=== PATIENT | male | born 1940 | race Caucasian/White ===

== ENCOUNTER 2019-03-29 17:32 | Observation (INO) ==
--- NOTE | 2019-03-29 17:55 | Emergency Department Note ---
Disposition Clinical Impression: Laceration Concussion with loss of consciousness Qualifiers: Encounter type: initial encounter Qualified Code(s): S06.0X9A - Concussion with loss of consciousness of unspecified duration, initial encounter Syncope Qualifiers: Syncope type: unspecified Qualified Code(s): R55 - Syncope and collapse Head injury Qualifiers: Encounter type: initial encounter Qualified Code(s): S09.90XA - Unspecified injury of head, initial encounter Disposition: Admitted As Inpatient Condition: Good Referrals: Michelle Bowser MD [Primary Care Provider] - Forms: ED Satisfaction Letter Time of Disposition: 21:36 Head Injury HPI - General Chief complaint: ED Head Injury Stated complaint: Trauma Time Seen by Provider: 03/29/19 17:35 Source: patient, family Mode of arrival: private vehicle Limitations: no limitations Nursing Notes Reviewed: Yes Vital Signs Reviewed: Yes - History of Present Illness HPI Narrative: 78M with significant cardiac history that reports being 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 He presents with a laceration above his right eye, a visibly deformed nose, and while alert & oriented x 3, is slow to respond. Pt was moved from room 26 to trauma 1 and alert team was notified. Pt reported being on aspirin and plavix, but plavix was reportedly discharged recently. Pt was taken to CT scan before a full trauma evaluation was performed given the reported history of blood thinners with head injury. - Related Data Home Medications Medication Instructions Recorded Confirmed Aspirin [Lo-Dose Aspirin EC] 81 mg PO DAILY 11/09/16 03/29/19 Cyanocobalamin (Vitamin B-12) 100 mcg PO DAILY 11/09/16 03/29/19 [Vitamin B-12] Finasteride [Proscar] 5 mg PO DAILY 11/09/16 03/29/19 Lecithin 1,200 mg PO BID 11/09/16 03/29/19 Lisinopril [Zestril] 10 mg PO BID 11/09/16 03/29/19 Metoprolol [Lopressor] 25 mg PO BID 11/09/16 03/29/19 Simvastatin [Zocor] 40 mg PO HS 11/09/16 03/29/19 Isosorbide MONOnitrate (24 HR) 30 mg PO DAILY 07/09/17 03/29/19 [Imdur] Pantoprazole Sodium [Protonix] 40 mg PO BID 03/29/19 03/29/19 Allergies/Adverse reactions: Allergies Allergy/AdvReac Type Severity Reaction Status Date / Time No Known Allergies Allergy Verified 07/09/17 06:56 Limitations: ROS unobtainable due to patients medical condition Past Medical History - Past Medical History Medical history: Reports: CHF, coronary artery disease, GERD, GI bleed, hyperlipidemia, hypertension, syncope, other Surgical history: Reports: angioplasty/stent, coronary bypass (CABG), pacemaker Psychiatric history: Reports: no psych history - Social History Smoking Status: Unknown if ever smoked Smokeless Tobacco Status: No Alcohol use: Reports: none Drug use: Reports: none Physical Exam GENERAL: On backboard with C-collar in place. SKIN: Warm and well perfused. No rashes, bruises, discolorations or abrasions. HEAD: 5cm linear laceration above right eye running from lateral to medial with gaping of the wound and active bleeding. EYES: PERRL. No scleral icterus or conjunctival injection. Extraocular muscles intact without nystagmus or diplopia. No proptosis or enophthalmos. EARS: Normal appearing pinnae. No hemotympanum. NOSE: Deformity of nose with evidence of recent bleeding, no active bleeding. No nasal septal hematoma. MOUTH: No malocclusion or trismus. Moist mucus membranes with blood, presumably from nose, no lacerations noted to inside of mouth. Posterior pharynx without erythema or exudate. NECK: Trachea midline. No discolorations or edema. Neck immobilized in cervical collar. CV: Regular rate and rhythm, Normal s1 and s2. No murmurs, rubs, or gallops. PV: Radial pulses 2+ bilaterally and symmetric. Dorsalis pedis pulses 2+ bilaterally and symmetric. 2+ capillary refill. No extremity edema. CHEST: No abrasions or ecchymosis. Chest symmetric with respirations. No chest wall tenderness. No crepitus. No step offs. Lungs are clear to auscultation bilaterally. No rales, rhonchi, wheezing or stridor. Pacemaker present in upper left quadrant. ABDOMEN: No ecchymosis or abrasions. Soft, nondistended, nontender. Bowel tones normoactive. No masses or organomegaly. BACK: No abrasions, skin openings, or ecchymosis. Midline thoracic back pain at T8-T10, no step offs, no overlying ecchymosis, erythema. PELVIC: Pelvis stable, nontender to lateral compression and palpation of symphysis pubis. RECTAL: Normal tone. Stool without gross blood. MSK: No gross deformities or discolorations or lesions. Tolerates full range of motion of extremities without tenderness except as noted: left wrist, left and right shoulders, left forearm, right lower extremity. NEURO: Alert and oriented to person, place, and time. GCS 15. CN II-XII intact. Sensation grossly intact. Strength 5/5 in bilateral UE and LE. Finger to nose intact bilaterally. - General Limitations: no limitations General appearance: alert, in no apparent distress Course Vital Signs Temperature 97.4 F L 03/29/19 17:42 Pulse Rate 69 03/29/19 17:42 Respiratory Rate 16 03/29/19 17:42 Blood Pressure 168/86 03/29/19 17:42 O2 Sat by Pulse Oximetry 96 03/29/19 17:42 Temperature 97.4 F L 03/29/19 17:42 Pulse Rate 69 03/29/19 20:25 Respiratory Rate 18 03/29/19 20:25 Blood Pressure 162/74 03/29/19 20:25 O2 Sat by Pulse Oximetry 98 03/29/19 20:25 Oxygen Delivery Oxygen Delivery Room Air Head Injury - MDM Narrative Medical decision making narrative: 78-year-old male that may have lost consciousness and struck his head, or struck his head and lost consciousness while he was [facility] a bulldozer [facility] today. Patient is now complaining of bilateral shoulder pain, he has a laceration above his right eye, and evidence of recent epistaxis out of bilateral nares. Due to the uncertainty in the patient's presentation we will obtain a CT of his head and neck, EKG. The CT of the head and neck was obtained before a full trauma examination was completed. CT was unremarkable. X-rays were ordered for all of the complaints he had during trauma exam, and did not show any evidence of acute fractures. There was some question as to whether or not he had foreign bodies in his left arm, however he does not have any lacerations or open wounds over any aspect of his left arm. These foreign bod ies may be chronic in nature. Patient's EKG showed a left bundle branch block, and chart review revealed that patient receives cardiac care at [facility], and last old EKG available was taken in 2010, it is unknown whether this left bundle branch block is new. Additionally patient initially reported that he was on aspirin and Plavix, however family reports the Plavix had been discontinued and so he was only taking aspirin. Given the patient's advanced age and presentation with story that cannot be completely correlated, patient could benefit from overnight observation in the hospital to ensure he does not clinically deteriorate and returns to mental baseline. Patient is awake and alert 3 however states that he appears more sluggish than normal. Patient's laceration was repaired in the department. Patient will be admitted to the hospitalist. Results of the workup including any imaging and/or labwork was shared with the patient at bedside. Patient was given an opportunity to ask questions at bedside and all of their concerns were addressed. Patient verbalized understanding and agreement with plan of care. Pt remained stable while in the department. - Medical Records Medical records reviewed: Yes I reviewed the patient's medical records. - Lab Data Lab results reviewed: Yes I reviewed the patient's lab results. Result diagrams: 03/29/19 17:45 03/29/19 17:45 Lab Results 03/29/19 03/29/19 Range/Units 17:45 17:45 WBC 9.6 (4.3-11.1) K/mcL RBC 4.26 (4.19-5.50) M/mcL Hgb 13.6 (12.9-16.9) g/dL Hct 37.9 (37.5-50.1) % MCV 89.0 (83.0-100.0) fL MCH 31.9 (28.0-33.3) pg MCHC 35.9 H (31.6-35.5) g/dL RDW 12.7 (11.5-14.5) % Plt Count 215 (140-400) K/mcL MPV 9.6 (9.4-12.4) fL Immature Gran % 0.5 (0-4) % Seg Neutrophils % 71.9 % Lymphocytes % 18.5 % Monocytes % 7.0 % Eosinophils % 1.6 % Basophils % 0.5 % Neutrophils # 6.9 (1.6-8.9) K/mcL Lymphocytes # 1.8 (0.6-4.6) K/mcL Monocytes # 0.7 (0.0-1.3) K/mcL Eosinophils # 0.2 (0.0-0.6) K/mcL Basophils # 0.1 (0.0-0.2) K/mcL Sodium 139 (136-145) mEq/L Potassium 3.9 (3.5-5.1) mEq/L Chloride 104 (98-107) mEq/L Carbon Dioxide 29 (23-29) mEq/L BUN 14 (8-23) mg/dL Creatinine 0.85 (0.70-1.30) mg/dL Est GFR ( Amer) > 60 (> 60) Est GFR (Non-Af Amer) > 60 (> 60) BUN/Creatinine Ratio 16 (6-26) Glucose 112 H (70-105) mg/dL Calculated Osmolality 289 (280-300) Calcium 9.3 (8.6-10.3) mg/dL Magnesium 1.8 (1.6-2.6) mg/dL Creatine Kinase 213 (30-223) Units/L Troponin I < 0.03 (< 0.04) ng/mL - Radiology Data Radiology results reviewed: Yes I reviewed the patient's radiology results. Cervical Spine CT 03/29/19 17:41 IMPRESSION: No acute intracranial abnormality. Cerebral atrophy. No acute fracture of the cervical spine. Moderate diffuse degenerative changes. D/ / Gerardo Christianson MD / Gerardo Christianson MD Interpreting Provider: Gerardo Christianson MD Head CT 03/29/19 17:41 IMPRESSION: No acute intracranial abnormality. Cerebral atrophy. No acute fracture of the cervical spine. Moderate diffuse degenerative changes. D/ / Gerardo Christianson MD / Gerardo Christianson MD Interpreting Provider: Gerardo Christianson MD Forearm X-Ray 03/29/19 18:17 IMPRESSION: No acute bony abnormality. Punctate radiopacity projecting over the lateral soft tissues the distal forearm. Correlation for foreign body is recommended. D/ / Naila Alvarez Cha, MD / Naila Alvarez Cha, MD Interpreting Provider: Naila Alvarez Cha, MD Shoulder X-Ray 03/29/19 18:17 IMPRESSION: No acute osseous abnormality of the right shoulder. Mild degenerative changes. No acute osseous abnormality of the left shoulder. Mild osteoarthritic change. No acute osseous abnormality of the thoracic spine. Multilevel thoracic spondylosis. D/ / Irwin Bella MD / Irwin Bella MD Interpreting Provider: Irwin Bella MD Thoracic Spine X-Ray 03/29/19 18:17 IMPRESSION: No acute osseous abnormality of the right shoulder. Mild degenerative changes. No acute osseous abnormality of the left shoulder. Mild osteoarthritic change. No acute osseous abnormality of the thoracic spine. Multilevel thoracic spondylosis. D/ / Irwin Bella MD / Irwin Bella MD Interpreting Provider: Irwin Bella MD Tibia/Fibula X-Ray 03/29/19 18:17 IMPRESSION: No acute bony abnormality. D/ / Naila Alvarez Cha, MD / Naila Alvarez Cha, MD Interpreting Provider: Naila Alvarez Cha, MD Wrist X-Ray 03/29/19 18:17 IMPRESSION: Several small radiopacities projecting over the lateral distal forearm, base of the thumb and thenar eminence suspicious for foreign bodies. Correlation is recommended. No acute bony abnormality. D/ / Naila Alvarez Cha, MD / Naila Alvarez Cha, MD Interpreting Provider: Naila Alvarez Cha, MD - EKG Data EKG attestation: Yes I reviewed and interpreted this EKG. EKG results narrative: Heart rate 70, rhythm sinus, axis left. He 156, QRS 1:30 and prolonged, QTc 457. Left bundle branch block. No significant ST elevation or depression by sgarbosa criteria. When compared to previous EKG dated 10/30/2010 the left bundle branch block is new. 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
[2019-03-29 18:13] LABS: Basophils # 0.1 K/mcL (0.0-0.2); Basophils % 0.5 %; Eosinophils # 0.2 K/mcL (0.0-0.6); Eosinophils % 1.6 %; Hematocrit 37.9 % (37.5-50.1); Hemoglobin 13.6 g/dL (12.9-16.9); Immature Granulocytes % 0.5 % (0-4); Lymphocytes # 1.8 K/mcL (0.6-4.6); Lymphocytes % 18.5 %; Mean Corpuscular HGB Conc 35.9 g/dL (31.6-35.5); Mean Corpuscular Hemoglobin 31.9 pg (28.0-33.3); Mean Platelet Volume 9.6 fL (9.4-12.4); Monocytes # 0.7 K/mcL (0.0-1.3); Neutrophils # 6.9 K/mcL (1.6-8.9); Platelet Count 215 K/mcL (140-400); Red Blood Count 4.26 M/mcL (4.19-5.50); Red Cell Distribution Width 12.7 % (11.5-14.5); Segmented Neutrophils % 71.9 %; White Blood Count 9.6 K/mcL (4.3-11.1)
[2019-03-29 18:34] LABS: BUN/Creatinine Ratio 16 (6-26); Blood Urea Nitrogen 14 mg/dL (8-23); Calcium 9.3 mg/dL (8.6-10.3); Carbon Dioxide 29 mEq/L (23-29); Chloride 104 mEq/L (98-107); Creatine Kinase 213 Units/L (30-223); Glucose 112 mg/dL (70-105); Magnesium 1.8 mg/dL (1.6-2.6); Osmolality,Calculated 289 (280-300); Potassium 3.9 mEq/L (3.5-5.1); Sodium 139 mEq/L (136-145); Troponin I < 0.03 ng/mL (< 0.04); eGFR For African Americans > 60 (> 60); eGFR For Non-African Americans > 60 (> 60)
--- NOTE | 2019-03-29 20:32 | Emergency Department Note ---
Disposition Clinical Impression: Laceration Concussion with loss of consciousness Qualifiers: Encounter type: initial encounter Qualified Code(s): S06.0X9A - Concussion with loss of consciousness of unspecified duration, initial encounter Syncope Qualifiers: Syncope type: unspecified Qualified Code(s): R55 - Syncope and collapse Head injury Qualifiers: Encounter type: initial encounter Qualified Code(s): S09.90XA - Unspecified injury of head, initial encounter Disposition: Admitted As Inpatient Condition: Good Referrals: Michelle Bowser MD [Primary Care Provider] - Forms: ED Satisfaction Letter Time of Disposition: 20:32 General Adult HPI - General Chief complaint: ED Head Injury Stated complaint: Trauma Time Seen by Provider: 03/29/19 17:35 Source: patient, family Mode of arrival: private vehicle Limitations: no limitations - History of Present Illness Pain Scale: 0 - Related Data Home Medications Medication Instructions Recorded Confirmed Aspirin [Lo-Dose Aspirin EC] 81 mg PO DAILY 11/09/16 03/29/19 Cyanocobalamin (Vitamin B-12) 100 mcg PO DAILY 11/09/16 03/29/19 [Vitamin B-12] Finasteride [Proscar] 5 mg PO DAILY 11/09/16 03/29/19 Lecithin 1,200 mg PO BID 11/09/16 03/29/19 Lisinopril [Zestril] 10 mg PO BID 11/09/16 03/29/19 Metoprolol [Lopressor] 25 mg PO BID 11/09/16 03/29/19 Simvastatin [Zocor] 40 mg PO HS 11/09/16 03/29/19 Isosorbide MONOnitrate (24 HR) 30 mg PO DAILY 07/09/17 03/29/19 [Imdur] Pantoprazole Sodium [Protonix] 40 mg PO BID 03/29/19 03/29/19 Allergies Allergy/AdvReac Type Severity Reaction Status Date / Time No Known Allergies Allergy Verified 07/09/17 06:56 Past Medical History - Past Medical History Medical history: Reports: CHF, coronary artery disease, GERD, GI bleed, hyperlipidemia, hypertension, syncope, other Surgical history: Reports: angioplasty/stent, coronary bypass (CABG), pacemaker Psychiatric history: Reports: no psych history - Social History Smoking Status: Unknown if ever smoked Smokeless Tobacco Status: No Alcohol use: Reports: none Drug use: Reports: none Physical Exam - General Limitations: no limitations General appearance: alert, in no apparent distress Course Vital Signs Temperature 97.4 F L 03/29/19 17:42 Pulse Rate 69 03/29/19 17:42 Respiratory Rate 16 03/29/19 17:42 Blood Pressure 168/86 03/29/19 17:42 O2 Sat by Pulse Oximetry 96 03/29/19 17:42 Temperature 97.4 F L 03/29/19 17:42 Pulse Rate 69 03/29/19 20:25 Respiratory Rate 18 03/29/19 20:25 Blood Pressure 162/74 03/29/19 20:25 O2 Sat by Pulse Oximetry 98 03/29/19 20:25 Oxygen Delivery Oxygen Delivery Room Air Medical Decision Making - Lab Data Result diagrams: 03/29/19 17:45 03/29/19 17:45 Lab Results 03/29/19 03/29/19 Range/Units 17:45 17:45 WBC 9.6 (4.3-11.1) K/mcL RBC 4.26 (4.19-5.50) M/mcL Hgb 13.6 (12.9-16.9) g/dL Hct 37.9 (37.5-50.1) % MCV 89.0 (83.0-100.0) fL MCH 31.9 (28.0-33.3) pg MCHC 35.9 H (31.6-35.5) g/dL RDW 12.7 (11.5-14.5) % Plt Count 215 (140-400) K/mcL MPV 9.6 (9.4-12.4) fL Immature Gran % 0.5 (0-4) % Seg Neutrophils % 71.9 % Lymphocytes % 18.5 % Monocytes % 7.0 % Eosinophils % 1.6 % Basophils % 0.5 % Neutrophils # 6.9 (1.6-8.9) K/mcL Lymphocytes # 1.8 (0.6-4.6) K/mcL Monocytes # 0.7 (0.0-1.3) K/mcL Eosinophils # 0.2 (0.0-0.6) K/mcL Basophils # 0.1 (0.0-0.2) K/mcL Sodium 139 (136-145) mEq/L Potassium 3.9 (3.5-5.1) mEq/L Chloride 104 (98-107) mEq/L Carbon Dioxide 29 (23-29) mEq/L BUN 14 (8-23) mg/dL Creatinine 0.85 (0.70-1.30) mg/dL Est GFR ( Amer) > 60 (> 60) Est GFR (Non-Af Amer) > 60 (> 60) BUN/Creatinine Ratio 16 (6-26) Glucose 112 H (70-105) mg/dL Calculated Osmolality 289 (280-300) Calcium 9.3 (8.6-10.3) mg/dL Magnesium 1.8 (1.6-2.6) mg/dL Creatine Kinase 213 (30-223) Units/L Troponin I < 0.03 (< 0.04) ng/mL Attestation Statement - Attestation Attestation: I reviewed the residents documentation and agree with the residents assessment and plan of care. I have personally had face to face time with the patient. (Brief History, Brief Exam, and MDM) I personally supervised and was present for the veliz/critical portions of the following procedures completed by the resident: EKG 78 year old with syncopal episode unsure if it was before or after his head injury and fall. He was in a bulldozer and called his son at 1430 and was fine and then called his at 1630 asking for help becuase he now has a head injury with laceration and is currenltyon ASA. Dianna HCT and neck CT are negative and we will repair the laceration. Tracie has cardiopulmonary wokrup and is toherw negatve troponin but appears to have a LBBB without old ekg to compare too. [facility] [place] admit for syncope and LBBB with fall and head injury. ADmit to medicine
[2019-03-29] MEDS ORDERED: *HR* OxyCODONE/APAP 5/325 TABLET PO ONE (20:38)
[2019-03-29] MEDS ORDERED: 0.9 % Sodium Chloride 1,000 ML IVC SCH (22:00)
--- NOTE | 2019-03-30 02:48 | Internal Med History&Physical ---
Date of Encounter: 03/30/19 Time of Encounter: 02:30 Internal Medicine - H&P: HPI Chief complaint: Syncope History of present illness: Mr. Garvin is a 78 year old male with a past medical history of coronary artery disease status post 8 stents, history of syncope, status post pacemaker, GERD, carotid stenosis, hypertension and hyperlipidemia who presented to the ED after a syncopal episode earlier today. Patient had been working outdoors for the past few days. Today around 4:30 patient was excavating some land with his bulldozer when he reported feeling dizzy and lightheaded. Per family members at bedside, Patient appeared to have lost consciousness and subsequently nearly drove his bulldozer into the very same ditch that she was digging. Fortunately the excavating portion of the bulldozer prevented the tractor from tipping over. Patient however likely was thrown forward and struck his forehead against the metal screen. He recalls coming to and subsequently calling his and reporting that he was not feeling well. Family came to his aid noted state a laceration to forehead as well as bleeding from the nose. He was escorted down from the tractor though appeared to be very weak requiring assistance. Family subsequently was able to get him into the car and bring him over to the hospital. Patient however does not recall the events of him being carried off the tractor and into the car. The next thing he recalls is being transported to the hospital and experiencing pain whenever he was jostled in the car due to the road bumps. Patient had been on aspirin and Plavix but states that his Plavix was recently discontinued. Patient otherwise denies any chest pain, shortness of breath, nausea, vomiting, diarrhea, or recent illness. No prior history of stroke or seizures. On arrival patient was hemodynamically stable though mildly hypertensive. Laboratory workup was unremarkable. Patient was arellano scanned which showed no evidence of acute fracture. There was some question as to whether or not he had foreign bodies in his left arm, however he did not have any lacerations or open wounds over any aspect of his left arm suggesting a possible chronic etiology. Patient's EKG showed a left bundle branch block, and chart review revealed that patient receives cardiac care at [place], and last old EKG available was taken in 2010 and therefore chronicity of current findings cannot be determined. On my assessment patient was alert oriented 3. Neurologically intact. Still reporting retrograde amnesia. Case was discussed with neurology concussion could be a possibility and felt it would be appropriate to admit patient for observation and periodic neurological assessment overnight. Patient will be full code for this admission. Past Med Surg Social Fam HX - Past Medical History Medical history: CHF, coronary artery disease, GERD, GI bleed, hyperlipidemia, hypertension, syncope, other Additional medical history: CAD w/8 stents, L shoulder pain, BPH, carotid stenosis, pneumonia Psychiatric history: no psych history - Past Surgical History Surgical History: angioplasty/stent, coronary bypass (CABG), pacemaker Additional surgical history: pacemaker 2009, TRIPLE BYPASS, HEART STENTS 2010, L RCR, R shoulder scope, heart caths, loop recorder implanted 2010, EGD/colonoscopy - Social History Smoking Status: Never smoker Smokeless Tobacco Status: No Alcohol use: none Drug use: none - Family History Brother Hx Family Cardiac Disorders: Yes (CAD) Mother Living Status: Cause of : stroke Hx Family Neuromuscular Disorders: Yes (stroke) Father Living Status: Cause of : heart attack Hx Family Cardiac Disorders: Yes (heart attack) Internal Medicine - H&P: Meds Aspirin [Lo-Dose Aspirin EC] 81 mg PO DAILY 11/09/16 [History] Cyanocobalamin (Vitamin B-12) [Vitamin B-12] 100 mcg PO DAILY 11/09/16 [History] Finasteride [Proscar] 5 mg PO DAILY 11/09/16 [History] Lecithin 1,200 mg PO BID 11/09/16 [History] Lisinopril [Zestril] 10 mg PO BID 11/09/16 [History] Metoprolol [Lopressor] 25 mg PO BID 11/09/16 [History] Simvastatin [Zocor] 40 mg PO HS 11/09/16 [History] Isosorbide MONOnitrate (24 HR) [Imdur] 30 mg PO DAILY 07/09/17 [History] Pantoprazole Sodium [Protonix] 40 mg PO BID 03/29/19 [History] Allergy/AdvReac Type Severity Reaction Status Date / Time No Known Allergies Allergy Verified 07/09/17 06:56 All Systems PM: A 10-system review of systems was performed and is negative for pertinent findings except as documented above in the HPI. - Constitutional Constitutional: no chills, no fever(s), no night sweats - EENT Eyes: no change in vision, no discharge, no pain, no photophobia Ears: no ear discharge, no ear pain, no tinnitus Nose, mouth and throat: no dysphagia, no nasal discharge, no neck pain, no sore throat - Cardiovascular Cardiovascular ROS IM: no chest pain, no diaphoresis, no dyspnea, no l ightheadedness, no palpitations, no syncope - Respiratory Respiratory: no cough, no dyspnea, no wheezing, no excessive phlegm production - Gastrointestinal Gastrointestinal: no abdominal pain, no diarrhea, no hematemesis, no hematochezia, no melena, no nausea, no vomiting - Musculoskeletal Musculoskeletal ROS IM: no numbness, no tingling - Integumentary Integumentary IM: no rash, no unusual bruising - Neurological Neurological ROS: no confusion, no convulsions, no focal weakness, no numbness, no tingling, no tremor(s) - Hematologic/Lymphatic Hematologic/Lymphatic: no easy bruising - Constitutional Vitals: Temp Pulse Resp BP Pulse Ox 98.3 F 72 16 160/71 96 03/29/19 22:27 03/29/19 22:27 03/29/19 22:27 03/30/19 00:27 03/29/19 22:27 Exam: General: Alert and oriented Skin: 3 mm horizontal laceration over the right forehead status post stitching HEENT:EOM, pupils equal, round and reactive. Cardiovascular:Normal S1 & S2, no rubs, murmurs or gallops. No JVD. Pulse regu lar. Lungs:Normal breath sounds, no wheezes or crackles. Abdomen:Soft, non-tender, no rigidity. Extremities:No deformity, no edema or tenderness, no joint swelling or clubbing. Neurological:Normal cognition and motor skills. Cranial nerves II through XII intact. Sensory intact. Muscle strength 5 out of 5 in upper and lower extremities. Pulses:Carotid and radial pulses normal +2. Rest of the physical exam is non contributory Internal Med - H&P Results - Labs CBC & Chem 7: 03/29/19 17:45 03/30/19 05:14 Labs: Short CBC 03/29/19 Range/Units 17:45 WBC 9.6 (4.3-11.1) K/mcL Hgb 13.6 (12.9-16.9) g/dL Hct 37.9 (37.5-50.1) % Plt Count 215 (140-400) K/mcL Neutrophils # 6.9 (1.6-8.9) K/mcL BMP 03/29/19 17:45 Sodium 139 Potassium 3.9 Chloride 104 Carbon Dioxide 29 BUN 14 Creatinine 0.85 Glucose 112 H Calcium 9.3 Cardiac Enzymes 03/29/19 Range/Units 17:45 Troponin I < 0.03 (< 0.04) ng/mL - Impressions ITS Impressions Cervical Spine CT 03/29/19 17:41 IMPRESSION: No acute intracranial abnormality. Cerebral atrophy. No acute fracture of the cervical spine. Moderate diffuse degenerative changes. D/ / Gerardo Christianson MD / Gerardo Christianson MD Interpreting Provider: Gerardo Christianson MD Head CT 03/29/19 17:41 IMPRESSION: No acute intracranial abnormality. Cerebral atrophy. No acute fracture of the cervical spine. Moderate diffuse degenerative changes. D/ / Gerardo Christianson MD / Gerardo Christianson MD Interpreting Provider: Gerardo Christianson MD Shoulder X-Ray 03/29/19 17:50 IMPRESSION: No acute osseous abnormality of the right shoulder. Mild degenerative changes. No acute osseous abnormality of the left shoulder. Mild osteoarthritic change. No acute osseous abnormality of the thoracic spine. Multilevel thoracic spondylosis. D/ / Irwin Bella MD / Irwin Bella MD Interpreting Provider: Irwin Bella MD Forearm X-Ray 03/29/19 18:17 IMPRESSION: No acute bony abnormality. Punctate radiopacity projecting over the lateral soft tissues the distal forearm. Correlation for foreign body is recommended. D/ / Naila Alvarez Cha, MD / Naila Alvarez Cha, MD Interpreting Provider: Naila Alvarez Cha, MD Shoulder X-Ray 03/29/19 18:17 IMPRESSION: No acute osseous abnormality of the right shoulder. Mild degenerative changes. No acute osseous abnormality of the left shoulder. Mild osteoarthritic change. No acute osseous abnormality of the thoracic spine. Multilevel thoracic spondylosis. D/ / Irwin Bella MD / Irwin Bella MD Interpreting Provider: Irwin Bella MD Thoracic Spine X-Ray 03/29/19 18:17 IMPRESSION: No acute osseous abnormality of the right shoulder. Mild degenerative changes. No acute osseous abnormality of the left shoulder. Mild osteoarthritic change. No acute osseous abnormality of the thoracic spine. Multilevel thoracic spondylosis. D/ / Irwin Bella MD / Irwin Bella MD Interpreting Provider: Irwin Bella MD Tibia/Fibula X-Ray 03/29/19 18:17 IMPRESSION: No acute bony abnormality. D/ / Naila Alvarez Cha, MD / Naila Alvarez Cha, MD Interpreting Provider: Naila Alvarez Cha, MD Wrist X-Ray 03/29/19 18:17 IMPRESSION: Several small radiopacities projecting over the lateral distal forearm, base of the thumb and thenar eminence suspicious for foreign bodies. Correlation is recommended. No acute bony abnormality. D/ / Naila Alvarez Cha, MD / Naila Alvarez Cha, MD Interpreting Provider: Naila Alvarez Cha, MD - Assessment and Plan (1) Syncope Status: Acute Assessment and plan: 78-year-old male with extensive cardiac history status post pacemaker and previous history of syncope presenting with what appears to be unwitnessed loss of consciousness resulting in head trauma. Patient does report feeling dizzy and lightheaded as the last thing he remembers. Duration of LOC unclear. No reports of chest pain, palpitations, nausea or vomiting. Patient reportedly found to be generally weak after family arrived requiring assistance with ambulation. No prior history of stroke or seizures. Currently AO 3. Neurologically intact. Initial troponin negative. Remainder of Labs unremarkable. Etiology of patient's syncope possibly vasovagal versus cardiogenic given extensive cardiac history and history of carotid stenosis. Cannot rule out seizure or stroke though appears to be less likely. -Telemetry -Supportive fluids -Check orthostatics given patient had been working outside in the heat for the past few days -Echocardiogram -Bilateral carotid duplex (previous history of carotid stenosis) -Patient will likely need interrogation of pacemaker. Appears to be [employer]. -Cardiology consult Qualifiers: Syncope type: unspecified Qualified Code(s): R55 - Syncope and collapse (2) Laceration Status: Acute Assessment and plan: Stitching appears to be clean dry and intact. We will monitor and consult surgery for any changes. (3) Concussion Status: Acute Assessment and plan: Concussion likely secondary to syncope with retrograde amnesia. Case discussed with neurology who recommended continued neuro checks overnight. Neurology will consult on patient in the morning. Qualifiers: Encounter type: initial encounter Loss of consciousness presence/duration: with LOC of unspecified duration Qualified Code(s): S06.0X9A - Concussion with loss of consciousness of unspecified duration, initial encounter (4) Coronary artery disease Status: Acute Assessment and plan: History of coronary artery disease status post 8 stents. No reports of chest pain. -Resume beta roshni, YOLY inhibitor, aspirin and statin. Qualifiers: Coronary Disease-Associated Artery/Lesion type: unspecified vessel or lesion type Qualified Code(s): I25.10 - Atherosclerotic heart disease of [place] coronary artery without angina pectoris (5) DVT prophylaxis Status: Acute Assessment and plan: Intermittent pneumatic compression devices - Time Spent With Patient Total time spent is greater than 50% in coordination of care (as documented) at patient's floor/unit and/or counseling patient:
[2019-03-30] MEDS ORDERED: Acetaminophen 325 MG TABLET PO PRN (03:08)
[2019-03-30 06:18] LABS: Prothrombin Time 10.8 Seconds (9.4-12.1)
[2019-03-30 06:20] LABS: Activated Partial Thrombo Time 26.7 Seconds (26.0-36.0)
[2019-03-30 06:32] LABS: Troponin I < 0.03 ng/mL (< 0.04)
[2019-03-30 06:37] LABS: Alanine Aminotransferase 14 Units/L (7-52); Albumin 3.7 g/dL (3.5-5.7); Albumin/Globulin Ratio 1.9 (1.1-2.2); Alkaline Phosphatase 68 Units/L (34-104); Aspartate Amino Transferase 24 Units/L (13-39); BUN/Creatinine Ratio 19 (6-26); Bilirubin,Total 0.6 mg/dL (0.3-1.0); Blood Urea Nitrogen 14 mg/dL (8-23); Calcium 8.9 mg/dL (8.6-10.3); Carbon Dioxide 25 mEq/L (23-29); Chloride 105 mEq/L (98-107); Chol/HDL Ratio 3.4 (0-4.9); Cholesterol 136 mg/dL (< 200); Globulin 1.9 g/dL (2.4-3.5); Glucose 71 mg/dL (70-105); HDL Cholesterol 40 mg/dL (40-59); LDL Cholesterol,Calculated 78 mg/dL (0-99); Osmolality,Calculated 289 (280-300); Potassium 3.7 mEq/L (3.5-5.1); Sodium 140 mEq/L (136-145); Total Protein 5.6 g/dL (6.4-8.9); Triglycerides 91 mg/dL (< 150); eGFR For African Americans > 60 (> 60); eGFR For Non-African Americans > 60 (> 60)
[2019-03-30 07:24] LABS: Estimated Average Glucose 111 mg/dl
[2019-03-30] MEDS ORDERED: LECITHIN 1200 MG PO SCH (09:00)
[2019-03-30] MEDS ORDERED: Cyanocobalamin (B-12) 1,000 MCG TABLET PO SCH (09:00)
[2019-03-30] MEDS ORDERED: Finasteride 5 MG TABLET PO SCH (09:00)
[2019-03-30] MEDS ORDERED: Isosorbide MONOnitrate (24 HR) 30 MG TAB.ER.24H PO SCH (09:00)
[2019-03-30] MEDS ORDERED: Aspirin Enteric Coated 81 MG Tablet PO SCH (09:00)
--- NOTE | 2019-03-30 09:36 | Event Note ---
Date of Encounter: 03/30/19 Time of Encounter: 09:00 - Cardiology Event Note Patient admitted with possible syncopal event, however he is unclear whether he lost consciousness or note. States he remembers being dizzy and lightheaded. Patient with pacemaker. Pacemaker interrogated. No events yesterday that faby elate with symptoms. Normal functioning pacemaker. One atrial high rate 03/22/19. Patient follows with [facility]. Cardiology will sign off, recommend OP follow up with primary wool sampler. Please re-consult if needed.
[2019-03-30 11:44] VITALS: BP 147/62
--- NOTE | 2019-03-30 13:07 | Neurology - Consult Note ---
<Bernard Childers J - Last Filed: 03/30/19 13:03> Date of Encounter: 03/30/19 Time of Encounter: 13:03 Assessment and Plan (1) Concussion with loss of consciousness Current Visit: Yes Status: Acute Neurology seeing in consultation for concussion S/P syncopal event resulting in head trauma while on a bulldozer Symptoms preceded by dizziness and blurred vision. History of syncope and seizures He is intact neurologically without any focal findings;low suspicion for stroke He is still displaying some postconcussive symptoms with mild cognitive impairment Given presentation there is concern for vertebrobasilar insufficiency; proceed with CT angiogram head and neck Also given history of seizure we will get an EEG to rule out seizure etiology Echocardiogram pending C/W ASA and Zocor Further recommendations pending workup Qualifiers: Encounter type: initial encounter Qualified Code(s): S06.0X9A - Concussion with loss of consciousness of unspecified duration, initial encounter (2) Syncope Current Visit: Yes Status: Acute Qualifiers: Syncope type: unspecified Qualified Code(s): R55 - Syncope and collapse History of Present Illness Chief complaint: Syncope, head trauma HPI: Mr. Garvin is a 78 year old male with a PMH of CAD, GERD, CHF, HLD, HTN, syncope and prior seizure. Neurology consulted with concerns for syncope and concussion. The patient presented to the ED S/P head trauma and syncope. 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 He is unsure whether or not he lost consciousness but reports that the next thing he knows he had awoken after hitting his head off the cage with a bulldozer. As result of this is having memory difficulty and suffered a laceration on the forehead requiring stitches. Prior to the events he denies experiencing any chest pain, palpitations, shortness of breath, headaches, at her next/pain, facial asymmetry, dysphagia, dysarthria, focal weakness or sensory changes. He is at the time I suspect this afternoon he is still unable to recall all of the events surrounding his admission but denies any further neurological complaints. A CT of the head was completed and negative for acute intracranial abnormalities. He has been seen by cardiology and his pacemaker was interrogated without any acute arrhythmic findings. CBC and chemistry panel within expected range. Given the retrograde amnesia and cognitive impairment following the head trauma and I am suspicious for concussion. However, we will also admit and continue with workup of syncope and/or seizure activity. Past Med Surg Social Fam HX - Past Medical History Medical history: CHF, coronary artery disease, GERD, GI bleed, hyperlipidemia, hypertension, syncope, other Additional medical history: CAD w/8 stents, L shoulder pain, BPH, carotid stenosis, pneumonia Psychiatric history: no psych history - Past Surgical History Surgical History: angioplasty/stent, coronary bypass (CABG), pacemaker Additional surgical history: pacemaker 2009, TRIPLE BYPASS, HEART STENTS 2010, L RCR, R shoulder scope, heart caths, loop recorder implanted 2010, EGD/colonoscopy - Social History Smoking Status: Never smoker Smokeless Tobacco Status: No Alcohol use: none Drug use: none - Family History Brother Hx Family Cardiac Disorders: Yes (CAD) Mother Living Status: Cause of : stroke Hx Family Neuromuscular Disorders: Yes (stroke) Father Living Status: Cause of : heart attack Hx Family Cardiac Disorders: Yes (heart attack) Medications and Allergies Aspirin [Lo-Dose Aspirin EC] 81 mg PO DAILY 11/09/16 [History] Cyanocobalamin (Vitamin B-12) [Vitamin B-12] 100 mcg PO DAILY 11/09/16 [History] Finasteride [Proscar] 5 mg PO DAILY 11/09/16 [History] Lecithin 1,200 mg PO BID 11/09/16 [History] Lisinopril [Zestril] 10 mg PO BID 11/09/16 [History] Metoprolol [Lopressor] 25 mg PO BID 11/09/16 [History] Simvastatin [Zocor] 40 mg PO HS 11/09/16 [History] Isosorbide MONOnitrate (24 HR) [Imdur] 30 mg PO DAILY 07/09/17 [History] Pantoprazole Sodium [Protonix] 40 mg PO BID 03/29/19 [History] Allergy/AdvReac Type Severity Reaction Status Date / Time No Known Allergies Allergy Verified 07/09/17 06:56 All Systems: The remainder of the systems were reviewed and are negative Review of Systems: REVIEW OF SYSTEMS GENERAL: Negative for any nausea, vomiting, fevers, chills, or weight loss NEUROLOGIC: Negative for any blurry vision, blind spots, double vision, facial asymmetry, dysphagia, dysarthria, hemiparesis, hemisensory deficits, vertigo, ataxia, seizures, paralysis, tingling, numbness, unilateral weakness or numbness/tingling Positive-retrograde amnesia, difficulty concentrating PSYCH: agitation/irritability, anxiety, delirium HEENT: Positive for head trauma; reports hitting his head on the cage of his bulldozer CARDIAC: Negative for any chest pain, dyspnea, palpitations or peripheral edema. PULMONARY: Negative for any shortness of breath, wheezing ENDOCRINE: Thyroid trouble, heat/cold intolerance, excessive sweating MUSCULOSKELETAL: Negative- Joint pain, stiffness, loss of strength The remainder of the review of systems reviewed and found to be negative Physical Examination - Vital Signs Vital Signs: Initial Vital Signs Temp Pulse Resp BP Pulse Ox 97.4 F L 69 16 168/86 96 03/29/19 17:42 03/29/19 17:42 03/29/19 17:42 03/29/19 17:42 03/29/19 17:42 - Exam Exam: Examination: General Examination: *CONSTITUTIONAL: Alert and oriented x3, no acute distress *GENERAL APPEARANCE OF PATIENT appears healthy and well groomed *EYES: pupils equal, round, reactive to light and accommodation, conjunctiva clear without masses or ulcerations, fundi normal. *CARDIOVASCULAR: no peripheral edema, distal temperature normal, dorsalis pedis pulses normal. Refer to vital signs * MUSCULOSKELETAL: *GAIT AND STATION: normal, with normal Romberg testing, no abnormalities such as broad base gait or spasticity *ASSESSMENT OF MUSCLE STRENGTH IN THE UPPER AND LOWER EXTREMITIES bilateral deltoid, bicep, tricep, fountain jerk strength, hip flexors ,anterior tibialis, dorsoflexion of the foot 5/5 *MUSCLE TONE IN THE UPPER AND LOWER EXTREMITIES normal. No abnormal movements, fasciculations or atrophy identified. Neurological: *ORIENTATION to person, situation, time and place *LANGUAGE AND FUNCTION no significant aphasia or dysarthia was noted. *ATTENTION AND CONCENTRATION are normal but he is displaying some difficulty with cognition and having trouble with simple serial addition *LANGUAGE FUNCTION no significant aphasia or dysarthia was noted. *FUND OF KNOWLEDGE aware of current events, past history, vocabulary *MENTAL attention span and concentration normal. *CN II optic fundi were normal, no papilledema noted. *CN III,IV, PERRLA extraocular eye movements were full, no nystagmus and no ptosis noted. *CN V shows normal sensation and jaw opens symmetrically. *CN VII shows normal facial movement symmetrically, upper and lower bi laterally. *CN VIII shows no significant hearing loss on exam *CN IX-X palate elevated symmetrically *CN XI normal strength in the sternocleidomastoid muscles, symmetrical shoulder shrugging. *CN XII tongue protruded in the midline, with normal strength and movement. *SENSORY EXAMINATION light touch intact *REFLEXES: deep tendon reflexes were normal and symmetrical , grade 2/4 diffusely, no pathological reflexes were noted. *CEREBELLAR TESTING normal finger to nose, heel/knee/bradford *PAIN LEVEL 0/10 Results - Laboratory Findings CBC and BMP: 03/29/19 17:45 03/30/19 05:14 Abnormal lab findings: Abnormal lab results MCHC 35.9 g/dL (31.6-35.5) H 03/29/19 17:45 Glucose 112 mg/dL (70-105) H 03/29/19 17:45 POC Glucose 100 mg/dL (70-99) H 03/30/19 03:44 Serum Total Protein 5.6 g/dL (6.4-8.9) L 03/30/19 05:14 Globulin 1.9 g/dL (2.4-3.5) L 03/30/19 05:14 Consult Discharge Plan - Plan Referrals: Michelle Bowser MD [Primary Care Provider] - <Jacob Fournier - Last Filed: 03/30/19 15:45> Date of Encounter: 03/30/19 Assessment and Plan (1) Concussion with loss of consciousness Current Visit: Yes Status: Acute I have personally performed a htib-nc-past assessment of the patient and have reviewed the PA/SENIOR TECHNOLOGIST note. My impressions are as follows: I agree with the assessment and plan documented as above by the BEHAVIORAL HEALTH SPECIALIST. Patient experienced head trauma after which she experienced some retrograde amnesia. He may have experienced a syncopal episode of seizure prior to this event. 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 I agree it is reasonable to rule out vertebrobasilar insufficiency as well as seizure. EEG is yet pending. Further recommendations will be made pending workup as above. Qualifiers: Encounter type: initial encounter Qualified Code(s): S06.0X9A - Concussion with loss of consciousness of unspecified duration, initial encounter (2) Syncope Current Visit: Yes Status: Acute Qualifiers: Syncope type: unspecified Qualified Code(s): R55 - Syncope and collapse History of Present Illness HPI: The chart was reviewed, the patient was seen and examined along with the BEHAVIORAL HEALTH SPECIALIST. Case was discussed between his. I agree with his assessment of the history of present illness as documented above. All Systems: The remainder of the systems were reviewed and are negative Review of Systems: The balance of the systems review is negative. Physical Examination - Vital Signs Vital Signs: Initial Vital Signs Temp Pulse Resp BP Pulse Ox 97.4 F L 69 16 168/86 96 03/29/19 17:42 03/29/19 17:42 03/29/19 17:42 03/29/19 17:42 03/29/19 17:42 - Exam Exam: I have personally performed a jztq-iq-cumf assessment of the patient and have reviewed the PA/SENIOR TECHNOLOGIST note. My impressions are as follows: Chart was reviewed, patient was seen and examined in dependently. I agree with the documentation of the neurologic examination as stated above. Results - Laboratory Findings CBC and BMP: 03/29/19 17:45 03/30/19 05:14 Abnormal lab findings: Abnormal lab results MCHC 35.9 g/dL (31.6-35.5) H 03/29/19 17:45 Glucose 112 mg/dL (70-105) H 03/29/19 17:45 POC Glucose 100 mg/dL (70-99) H 03/30/19 03:44 Serum Total Protein 5.6 g/dL (6.4-8.9) L 03/30/19 05:14 Globulin 1.9 g/dL (2.4-3.5) L 03/30/19 05:14
[2019-03-30] MEDS ORDERED: Isovue-370 500 ML BOTTLE IVP ONE (13:13)
--- NOTE | 2019-03-30 14:35 | Discharge Summary ---
- NOTES TO OUTPATIENT PROVIDER Notes to Outpatient Provider: f/u with PCP in one week. f/u with Neurology in 2 weeks. f/u with Cardiology in 2-4 weeks. Date of Encounter: 03/30/19 Time of Encounter: 14:33 - Discharge Diagnosis (1) Syncope Priority: Primary Status: Acute Qualifiers: Syncope type: unspecified Qualified Code(s): R55 - Syncope and collapse (2) Laceration Priority: Primary Status: Acute (3) Concussion Priority: Primary Status: Acute Qualifiers: Encounter type: initial encounter Loss of consciousness presence/duration: with LOC of unspecified duration Qualified Code(s): S06.0X9A - Concussion with loss of consciousness of unspecified duration, initial encounter (4) Coronary artery disease Priority: Secondary Status: Acute Qualifiers: Coronary Disease-Associated Artery/Lesion type: unspecified vessel or lesion type Qualified Code(s): I25.10 - Atherosclerotic heart disease of [place] coronary artery without angina pectoris (5) History of sick sinus syndrome Priority: Secondary Status: Acute (6) DVT prophylaxis Priority: Secondary Status: Acute Hospital course: Mr. Garvin is a 78 year old male with a past medical history of coronary artery disease status post 8 stents, history of syncope / sick sinus syndrome, status post pacemaker, GERD, carotid stenosis, hypertension, and hyperlipidemia pt presented to the ED after a syncopal episode. Patient had been working outdoors for the past few days. Y/d evening when he was excavating some land with his bulldozer, felt dizzy and lightheaded. As per family, Patient appeared to have lost consciousness and subsequently nearly drove his bulldozer into the very same ditch that she was digging. Patient however likely was thrown forward and struck his forehead against the metal screen. He recalls coming to and subsequently calling his and reporting that he was not feeling well. Family came to his aid noted state a laceration to forehead as well as bleeding from the nose. Patient had been on aspirin and Plavix but states that his Plavix was recently discontinued. In the ER his initial CT of Head and Cervical spine CT were unremarkable. He was admitted in the hospital and placed him on pvc monitor. He does not have any more syncopal episodes.He was evaluated by cardiology who interrogated his pace maker, no abnormalities noticed. He was evaluated by Neurology, who recommended EEG, CTA of Head and Neck. His EEG did not show any seizure activity. His CTA of Head and Neck showed no acute intracranial abnormality and bilateral proximal internal carotid stenosis measuring 75% on the right and 60% on the left. His current syncope seems to be due to heat exhaustion. His symptoms improved with hydration, so will d/c him home in stable condition today. Recommend to f/u with PCP and Vascular surgery as an out pt. - Time Spent with Patient Total time spent providing and/or coordinating discharge services: Time spent: D/C greater than 8 hours after Admission (I provided zokt-[id number]-pcbj service to this patient more than 8 hrs apart since pt got admitted in the hospital by my colleague.) - Discharge Medications Prescriptions: Continued Aspirin [Lo-Dose Aspirin EC] 81 mg PO DAILY Cyanocobalamin (Vitamin B-12) [Vitamin B-12] 100 mcg PO DAILY Finasteride [Proscar] 5 mg PO DAILY Lecithin 1,200 mg PO BID Lisinopril [Zestril] 10 mg PO BID Metoprolol [Lopressor] 25 mg PO BID Simvastatin [Zocor] 40 mg PO HS Isosorbide MONOnitrate (24 HR) [Imdur] 30 mg PO DAILY Pantoprazole Sodium [Protonix] 40 mg PO BID Home Medications: Aspirin [Lo-Dose Aspirin EC] 81 mg PO DAILY 11/09/16 [History] Cyanocobalamin (Vitamin B-12) [Vitamin B-12] 100 mcg PO DAILY 11/09/16 [History] Finasteride [Proscar] 5 mg PO DAILY 11/09/16 [History] Lecithin 1,200 mg PO BID 11/09/16 [History] Lisinopril [Zestril] 10 mg PO BID 11/09/16 [History] Metoprolol [Lopressor] 25 mg PO BID 11/09/16 [History] Simvastatin [Zocor] 40 mg PO HS 11/09/16 [History] Isosorbide MONOnitrate (24 HR) [Imdur] 30 mg PO DAILY 07/09/17 [History] Pantoprazole Sodium [Protonix] 40 mg PO BID 03/29/19 [History] Allergies/Adverse Reactions: Allergy/AdvReac Type Severity Reaction Status Date / Time No Known Allergies Allergy Verified 12/22/17 06:56 Date of admission: 03/29/19 21:43 Primary care physician: Michelle Bowser MD Consults: 03/29/19 21:54 Consult to Neurology [CONS] Routine Consulting Provider: [facility] Reason for Consult: Concussion Call Completed: Yes Consult to Physical Therapy [CONS] Routine Comment: Evaluate, develop and implement POC Reason for Consult: Assess mobiltity following syncope and head trauma Does patient have active BEDREST order?: No Is patient medically & hemodynamically stable?: Yes 03/29/19 21:58 Consult to Cardiology [CONS] Routine Comment: Consulting Provider: Cardiology Anna Reason for Consult: Extensive cardiac history and history of syncope currently with pacemaker presenting with loss of consciousness with subsequent head trauma. Patient will likely need pacemaker interrogation. Appears to have [employer]. Call Completed: No - Constitutional Vitals: Temp Pulse Resp BP Pulse Ox 98.1 F 73 16 147/62 96 03/30/19 11:37 03/30/19 11:37 03/30/19 11:37 03/30/19 11:37 03/30/19 11:37 General appearance: Present: cooperative, A&O X 3, no acute distress, answers questions appropriately Exam: a - Head Head exam: Present: atraumatic, normal inspection - Neck Neck exam general surgery: Present: supple - Respiratory Respiratory exam: Present: decreased breath sounds. Absent: rales, respiratory distress, rhonchi, wheezes - Cardiovascular Cardiovascular exam: Present: RRR, +S1, +S2. Absent: tachycardia - GI/Abdominal GI/Abdominal exam: Present: normal bowel sounds, soft. Absent: rebound, rigid, tenderness - Extremities Exam Extremities exam: Present: normal inspection. Absent: calf tenderness, tenderness - Back Exam Back exam: Absent: CVA tenderness (L), CVA tenderness (R) - Neurological Exam Neurological exam: Present: alert, CN II-XII intact, oriented X3, no focal deficits, strengths equal and symetr throughout. Absent: facial droop, speech deficit - Psychiatric Psychiatric exam: Present: normal affect, normal mood - Patient Status Disposition: Home, Self-Care Condition: Good Overall status at discharge: patient is back to baseline - Discharge Instructions Follow Up With: Michelle Bowser MD [Primary Care Provider] - - Diet and Activity Activity: increase activity as tolerated Diet: low salt diet
--- NOTE | 2019-03-30 17:11 | EEG/EMG/Oth Biometrics Report ---
EEG Procedure Report EEG Procedure: Routine EEG Procedure Note: This is a report of a 20 channel bipolar and referential montage EEG. A posterior dominant rhythm of 8 Hz moderate voltage alpha frequencies identified symmetrically in the posterior head regions. This rhythm attenuates symmetrically evaluating opening. Hyperventilation is not performed in recording. Periods of drowsiness and stage II sleep identified as reference by dropout of posterior dominant rhythm and emergence of vertex activity, K complexes, and sleep spindles. Photic stenosis performed and does not produce a driving response. The EKG rhythm strip reveals normal sinus rhythm at 78 bpm. Impressions: This EEG recording is within normal limits. There is no evidence of epileptiform activity identified during the study. Comment: A normal EEG does not preclude a diagnosis of seizure or epilepsy. If the clinical suspicion for seizure activity is high, serial EEGs or perhaps a prolonged recording may increase the yield. Please correlate clinically.
--- NOTE | 2019-03-30 17:43 | Electrocardiograph Report ---
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
== END 2019-03-30 18:46 | disposition home or self-care (01) ==
LOC: EMEROOARM 17:32 → 3BNU 17:32 → SUATTDRO 21:43 → 3BNU 22:00
PROVIDERS: ADMIT Internal Medicine; ATTEND Family Medicine